=== PATIENT | male | born 1990 | race African-American/Black ===

== ENCOUNTER 2019-09-13 18:20 | Emergency (ER) | payer MEDICAID ==
[~2019-09-13] VITALS: Ht 175.3 cm; Wt 73.0 kg
[2019-09-13] MEDS ORDERED: LIDOCAINE 1%/EPI 1:100,000 10 ML VIAL IJ ONE (19:00)
[2019-09-13] MEDS ORDERED: IBUPROFEN 600MG TABLET PO ONE (19:00)
[2019-09-13] MEDS ORDERED: TETANUS, DIPHTHERIA, PERTUSSIS VAC/PF 0.5ML (>7YR OLD) IM ONE (19:00)
[2019-09-13] MEDS ORDERED: BACITRACIN ZINC OINT UDPKT TOP ONE (19:00)
[2019-09-13 20:17] VITALS: BP 124/68
== END 2019-09-13 20:18 | disposition home or self-care (01) ==
LOC: ER 18:20
DX: S61.210A Laceration without foreign body of right index finger without damage to nail, initial encounter (principal); W26.0XXA Contact with knife, initial encounter; Y93.89 Activity, other specified; Y92.89 Other specified places as the place of occurrence of the external cause; Y99.8 Other external cause status
CPT/HCPCS: 12002; 73120; 90471; 90715; 99283